=== PATIENT | female | born 1980 | race Caucasian/White ===

== ENCOUNTER → 2016-07-02 | Outpatient (CLI) | payer OTHER ==
--- NOTE | 2016-07-02 09:06 | REP ---
Transvaginal pelvic sonogram: History: Infertility study. Findings: Transvaginal sonographic dimensions of the uterus are 8.3 x 3.9 x 4.8 cm. Endometrial stripe is 0.6 cm thick. There is a 1.1 x 0.9 x 1.0 cm fibroid on the left lateral aspect of the uterus. Multiple Nabothian cysts are seen. No free fluid is seen in the cul-de-sac. Overall dimensions of the right ovary today of 3.1 x 1.0 x 3.2 cm. There are two follicles in the right ovary measuring over a centimeter as follows: 1.5 x 0.6 and 1.7 x 0.7 cm. In addition there are two follicles in the right ovary each measuring 0.6 cm in diameter. The left ovaries dimensions today are 3.8 x 2.5 x 3.5 cm. There are three follicles over a centimeter in the left ovary. These measure as follows: 2.8 x 2.0, 1.0 x 0.8, and 1.4 x 0.9 cm. In addition the left ovary contains six follicles ranging in size from 0.2-0.7 cm. Impression: Small uterine fibroid. Follicle study as above. Signed by Marcel Mesa MD 07/02/2016 02:27 P
[2016-07-02 17:11] LABS: LUTEINIZING HORMONE 5.1 mIU/mL; PROGESTERONE < 0.2 NG/ML
[2016-07-02 17:12] LABS: ESTRADIOL 174.9 PG/ML
== END ==
LOC: M LAB 08:00
PROVIDERS: ATTEND Obstetrics & Gynecology Reproductive Endocrinology
DX: N97.9 Female infertility, unspecified (principal); D25.9 Leiomyoma of uterus, unspecified

== ENCOUNTER → 2016-07-04 | Outpatient (CLI) | payer OTHER ==
--- NOTE | 2016-07-04 18:30 | REP ---
TRANSVAGINAL PELVIC ULTRASOUND, FOLLICLE STUDY: Real-time sonographic evaluation of the pelvis was performed utilizing transvaginal technique. The uterus measures 9.7 x 4.7 x 5.9 cm. Endometrial thickness is 11 mm. Left myometrial fibroid measures 1.2 x 1.0 x 1.0 cm. There are multiple nabothian cysts in the region of the cervix. Right ovary measures 3.6 x 2.1 x 3.8 cm. A dominant follicle measures 17 x 16 mm. Approximately 6 other subcentimeter follicles are seen. Left ovary measures 4.1 x 3.0 x 3.9 cm. There is a cystic structure in the left ovary 3.4 x 2.4 cm. Approximately 5 other subcentimeter follicles are seen in the left ovary. Signed by Jatin Bolivar MD 07/05/2016 04:39 P
== END ==
LOC: M RAD 15:21
PROVIDERS: ATTEND Obstetrics & Gynecology Reproductive Endocrinology
DX: N97.9 Female infertility, unspecified (principal)

== ENCOUNTER → 2016-07-04 | Outpatient (CLI) | payer OTHER ==
[2016-07-04 08:48] LABS: PROGESTERONE 0.4 NG/ML
[2016-07-04 08:49] LABS: ESTRADIOL 368.7 PG/ML
== END ==
LOC: M LAB 07:43
PROVIDERS: ATTEND Obstetrics & Gynecology Reproductive Endocrinology
DX: N97.9 Female infertility, unspecified (principal)

== ENCOUNTER → 2017-06-18 | Outpatient (CLI) | payer OTHER | LOC: M CLY 15:35 | DX: J22 Unspecified acute lower respiratory infection (principal) | CPT/HCPCS: 71046 ==

== ENCOUNTER → 2018-01-17 | Outpatient (CLI) | payer OTHER ==
[2018-01-17 08:51] LABS: HCG, SERUM QUANTITATIVE 7107 MIU/ML
[2018-01-17 09:04] LABS: PROGESTERONE 16.5 NG/ML
== END ==
LOC: M RAD 06:51
DX: O02.1 Missed abortion (principal)
CPT/HCPCS: 76801

== ENCOUNTER → 2018-01-28 | Outpatient (REF) | payer OTHER ==
[2018-01-29 12:12] LABS: HCG, SERUM QUANTITATIVE 111 MIU/ML
== END ==
LOC: M LABDRAWC 01-29 11:39
DX: O02.1 Missed abortion (principal)

== ENCOUNTER → 2018-02-21 | Outpatient (CLI) | payer OTHER ==
[2018-02-21 14:07] LABS: HCG, SERUM QUANTITATIVE < 1.0 MIU/ML
== END ==
LOC: M WUC 12:40
DX: Z32.01 Encounter for pregnancy test, result positive (principal)
CPT/HCPCS: 84702